=== PATIENT | male | born 1965 | race American Indian/Alaskan Native ===

== ENCOUNTER 2016-06-19 09:05 | Emergency (ER) | payer BC ==
[2016-06-19 09:13] VITALS: RESP 18
[2016-06-19 09:14] VITALS: BMI 25.0
[2016-06-19] MEDS ORDERED: Cellulose Hemostat 2X3 Sheet TP ONE (09:37)
[2016-06-19 10:05] LABS: EOS # 0.1 K/uL (0.0-0.7); EOS % 1.9 % (0.0-4.0); HEMATOCRIT 33.7 % (35.0-51.0); LYMPH # 0.8 K/uL (1.0-4.3); LYMPH % 20.8 % (20.0-40.0); MEAN CELL VOLUME 81.5 fl (80.0-94.0); MEAN CORPUSCULAR HGB CONC 33.1 g/dL (33.0-37.0); MEAN PLATELET VOLUME 8.1 fl (7.2-11.7); MONO # 0.4 K/uL (0.0-0.8); MONO % 11.3 % (0.0-10.0); NEUT # 2.6 K/uL (1.8-7.0); NRBC % 0.1 % (0.0-0.0); RED CELL DISTRIBUTION WIDTH 15.4 % (11.5-14.5)
[2016-06-19 10:19] LABS: BLOOD UREA NITROGEN 8 mg/dl (9-20); CARBON DIOXIDE 24 mmol/L (22-30); CHLORIDE 105 mmol/L (98-107); GFR AFRICAN-AMERICAN > 60; GLUCOSE,RANDOM 216 mg/dL (75-110); POTASSIUM 3.8 MMOL/L (3.6-5.0); SODIUM 140 mmol/l (132-148)
--- NOTE | 2016-06-19 10:19 | ED PDOC ---
Lower Extremity Pain/Injury Time Seen by Provider: 06/19/16 09:18 Chief Complaint (Nursing): Lower Extremity Problem/Injury Chief Complaint (Provider): Lower Extremity Problem/Injury History Per: Patient History/Exam Limitations: no limitations Onset/Duration Of Symptoms: Mins Current Symptoms Are (Timing): Still Present Severity: Moderate Additional Complaint(s): Patient is a 50 year old male who presents to ED for evaluation of bleeding from the right lower leg that began just [employer]. Patient reports that he had an ulcer to that area but it was healing, being treated by Dr. Otero. Upon EMS arrival, they applied a pressure dressing to the area which controlled the bleeding. In ED patient denies any other complaints. PMD: Dr. Morrison Business Area Director: Past Medical History Reviewed: Historical Data, Nursing Documentation, Vital Signs Vital Signs: Last Vital Signs Temp 98.0 F 06/19/16 09:12 Pulse 120 H 06/19/16 09:12 Resp 18 06/19/16 09:12 BP 145/111 H 06/19/16 09:12 Pulse Ox 97 06/19/16 09:12 - Medical History Other PMH: Varicose veins - Surgical History Surgical History: No Surg Hx - Family History Family History: States: No Known Family Hx - Allergies Allergies/Adverse Reactions: Allergies Allergy/AdvReac Type Severity Reaction Status Date / Time No Known Allergies Allergy Verified 06/19/16 09:16 Review of Systems Constitutional: Negative for: Weakness Eyes: Negative for: Vision Change Cardiovascular: Negative for: Chest Pain, Palpitations Musculoskeletal: Negative for: Leg Pain Skin: Positive for: Other (leg bleeding ) Neurological: Negative for: Weakness, Numbness Physical Exam - Reviewed Nursing Documentation Reviewed: Yes Vital Signs Reviewed: Yes - Physical Exam Appears: Positive for: Non-toxic, No Acute Distress Skin: Positive for: Normal Color, Warm. Negative for: Pallor Eye Exam: Positive for: Normal appearance Neck: Positive for: Normal Pulses-Post. Tibialis (R): 2+ Extremity: Positive for: Normal ROM, Other (RLE: (+) right calf with oozing bleed, unknown varicose veins vs opened ulcer wound ) Neurologic/Psych: Positive for: Alert, Oriented - Laboratory Results Result Diagrams: 06/19/16 09:57 06/19/16 09:57 - ECG O2 Sat by Pulse Oximetry: 97 (RA) Pulse Ox Interpretation: Normal Medical Decision Making Medical Decision Making: Time: 929 Initial impression: varicose vs opened ulcer wound Initial plan: -- Type and screen -- BMP -- CBC -- PT/PTT -- Cellulose Hemostat dressing placed -- Podiatry resident paged 12.20pm Bleeding stopped. Podiatry resident and Dr Otero seen patient in ED. Dressing with surgicel applied by podiatry. Stable for discharge with follow up with Dr Otero next week. Scribe Attestation: Documented by Sophia Sanabria acting as a scribe for Jennifer Fernando MD MD Scribe Attestation: All medical record entries made by the Scribe were at my direction and personally dictated by me. I have reviewed the chart and agree that the record accurately reflects my personal performance of the history, physical exam, medical decision making, and the department course for this patient. I have also personally directed, reviewed, and agree with the discharge instructions and disposition. Disposition - Clinical Impression Clinical Impression: Bleeding from varicose veins of right lower extremity - Patient ED Disposition Is Patient to be Admitted: No Doctor Will See Patient In The: Office Counseled Patient/Family Regarding: Studies Performed, Diagnosis, Need For Followup - Disposition Referrals: Manish Otero DPM [Family Provider] - Disposition: Routine/Home Disposition Time: 12:22 Condition: GOOD Additional Instructions: Apply dressing for next 2 days. Keep legs elevated. Follow up with Dr Otero next week. Instructions: Varicose Veins (ED)
[2016-06-19 10:28] LABS: PARTIAL THROMBOPLASTIN TIME 29.7 SECONDS (23.3-32.5)
--- NOTE | 2016-06-19 12:30 | CP.PCM.CON ---
History of Present Illness - History of Present Illness History of Present Illness: 50 year old male presented to the ED for bleeding from the posterior aspect of his right calf. Patient states that he is a patient of Dr. Otero and has seen him in the past for ulcers to the right lower extremity. He states that today, he hit something with his right calf and his leg started to bleed. He was unable to control the bleeding with pressure so he was brought to the ED. He has had this happen once before and it subsided with pressure. He denies any n/v /f/c/sob/cp. Past Patient History - Past Social History Smoking Status: Former Smoker - PSYCHIATRIC Hx Substance Use: No Meds Allergies/Adverse Reactions: Allergies Allergy/AdvReac Type Severity Reaction Status Date / Time No Known Allergies Allergy Verified 06/19/16 09:16 Physical Exam - Constitutional Appears: Well, Non-toxic, No Acute Distress - Extremities Exam Additional comments: Right lower extremity focused exam: Vasc:DP and PT pulses palpable b/l. Skin temperature warm to warm from proximal to distal. Neuro: Gross sensation intact Ortho: No pain on palpation to posterior calf with compression Derm: Small open wound noted to the posterior aspect of right calf, sanguineous drainage noted, non-pulsating. - Neurological Exam Neurological exam: Alert, Oriented x3 - Psychiatric Exam Psychiatric exam: Normal Affect, Normal Mood Results - Vital Signs Recent Vital Signs: Last Vital Signs Temp 98.0 F 06/19/16 09:12 Pulse 120 H 06/19/16 09:12 Resp 18 06/19/16 09:12 BP 145/111 H 06/19/16 09:12 Pulse Ox 97 06/19/16 12:26 - Labs Result Diagrams: 06/19/16 09:57 06/19/16 09:57 Labs: Laboratory Results - last 24 hr 06/19/16 06/19/16 09:57 10:08 WBC 4.0 L RBC 4.13 L Hgb 11.2 L Hct 33.7 L MCV 81.5 MCH 27.0 MCHC 33.1 RDW 15.4 H Plt Count 132 MPV 8.1 Neut % (Auto) 65.0 Lymph % (Auto) 20.8 Ector % (Auto) 11.3 H Eos % (Auto) 1.9 Baso % (Auto) 1.0 Neut # 2.6 Lymph # 0.8 L Ector # 0.4 Eos # 0.1 Baso # 0.0 PT 13.1 H INR 1.26 H APTT 29.7 Sodium 140 Potassium 3.8 Chloride 105 Carbon Dioxide 24 Anion Gap 15 BUN 8 L Creatinine 0.6 L Est GFR ( Amer) > 60 Est GFR (Non-Af Amer) > 60 Random Glucose 216 H Calcium 9.0 Blood Type O POSITIVE Antibody Screen Negative BBK History Checked No verified bt Assessment & Plan - Assessment and Plan (Free Text) Assessment: 50 year old male with wound noted to posterior aspect of right calf due to trauma Plan: Patient examined and evaluated with attending, Dr. Otero Chart and vitals reviewed Right lower extremity dressed with surgicel, 4x4 gauze, ABD, Kerlix, Unnas boot with coban Patient to keep dressing clean, dry, intact until f/u Patient to follow up with Dr. Otero in office on Friday
[2016-06-19 12:35] VITALS: BP 126/75; PULSE 93; TEMP 98; O2SAT 100
== END 2016-06-19 12:35 | disposition home or self-care (01) ==
LOC: H.ER 09:05
DX: I83.891 Varicose veins of right lower extremity with other complications (principal)